=== PATIENT | male | born 1990 | race Hispanic/Latino ===

== ENCOUNTER 2016-07-05 21:18 | Emergency (ER) | payer OTHER ==
[2016-07-05 22:28] LABS: Basophils % (Auto) 0.5 % (0.0-1.8); Hematocrit 39.7 % (35.5-45.6); Hemoglobin 13.7 gm/dl (11.8-15.2); Mean Corpuscular HGB Conc 35 % (32-34); Mean Corpuscular Hemoglobin 32 pg (28-32); Mean Corpuscular Volume 93 fl (84-94); Platelet Count 191 K/mm3 (140-440); Red Blood Count 4.26 M/mm3 (3.65-5.03); Red Cell Distribution Width 12.1 % (13.2-15.2); White Blood Count 11.2 K/mm3 (4.5-11.0)
[2016-07-05 22:42] LABS: Anion Gap 16 mmol/L; Blood Urea Nitrogen 15 mg/dL (9-20); Carbon Dioxide 26 mmol/L (22-30); Chloride 104.3 mmol/L (98-107); Glucose 84 mg/dL (75-100); Potassium 3.9 mmol/L (3.6-5.0); Sodium 142 mmol/L (137-145)
[2016-07-05 23:01] LABS: Urine Drugs of Abuse Note Disclamer
[2016-07-05 23:17] LABS: Bilirubin,Urine NEG (Negative); Blood,Urine NEG (Negative); Ketones,Urine NEG (Negative); Leukocyte Esterase,Urine NEG (Negative); Mucus,Urine 3+ /HPF; Nitrite,Urine NEG (Negative); Protein,Urine <15 mg/dL mg/dL (Negative); WBC,Urine < 1.0 /HPF (0.0-6.0)
--- NOTE | 2016-07-06 03:52 | Emergency Department Report ---
ED General Adult HPI - General Chief complaint: Psych Stated complaint: CHECK UP Time Seen by Provider: 07/06/16 03:39 Source: patient, EMS (ems notes not available at time of chart dictation), RN notes reviewed Mode of arrival: Ambulatory Limitations: No Limitations - History of Present Illness Initial comments: This is a 26-year-old male. He is previously unknown to me. Brought to the hospital by EMS. Patient indicates that he is homeless, and requests a place to stay. He is not homicidal. He is not suicidal. He also complains of headache. The headache is throbbing. It is chronic. It is present for years. Has no exacerbating or relieving factors. Also complains of nonspecific tingling on his fingertips on his toes. This has also been present for years. No exacerbating or relieving factors. -: Gradual, year(s) Location: face Radiation: non-radiation Severity scale (0 -10): 3 Consistency: intermittent Improves with: none Worsens with: none Associated Symptoms: headaches. denies: confusion, chest pain, cough, diaphoresis, fever/chills, loss of appetite, malaise, nausea/vomiting, rash, seizure, shortness of breath, syncope, weakness - Related Data Home Medications Medication Instructions Recorded Confirmed Last Taken No Known Home Medications [No 07/06/16 07/06/16 Unknown Reported Home Medications] Allergies Allergy/AdvReac Type Severity Reaction Status Date / Time No Known Allergies Allergy Verified 07/05/16 21:52 ED Review of Systems ROS: Stated complaint: CHECK UP Other details as noted in HPI Constitutional: denies: fever Eyes: denies: vision change ENT: denies: epistaxis Respiratory: denies: cough Cardiovascular: denies: chest pain Gastrointestinal: denies: abdominal pain Genitourinary: as per HPI Musculoskeletal: as per HPI Skin: as per HPI Neurological: headache Psychiatric: denies: homicidal thoughts, suicidal thoughts ED Past Medical Hx - Past Medical History Previous Medical History?: No - Surgical History Past Surgical History?: No - Social History Smoking Status: Current Every Day Smoker Substance Use Type: Alcohol - Medications Home Medications: Home Medications Medication Instructions Recorded Confirmed Last Taken Type No Known Home Medications [No 07/06/16 07/06/16 Unknown History Reported Home Medications] ED Physical Exam - General Limitations: No Limitations General appearance: alert, in no apparent distress - Head Head exam: Present: atraumatic, normocephalic - Eye Eye exam: Present: normal appearance, EOMI. Absent: nystagmus - ENT ENT exam: Present: normal exam, normal orophraynx, mucous membranes moist, normal external ear exam - Neck Neck exam: Present: normal inspection, full ROM. Absent: tenderness, meningismus - Respiratory Respiratory exam: Present: normal lung sounds bilaterally. Absent: respiratory distress, wheezes, rales, rhonchi, stridor, chest wall tenderness - Cardiovascular Cardiovascular Exam: Present: regular rate, normal rhythm, normal heart sounds. Absent: bradycardia, tachycardia, irregular rhythm, systolic murmur, diastolic murmur, rubs, gallop - GI/Abdominal GI/Abdominal exam: Present: soft, normal bowel sounds. Absent: distended, tenderness, guarding, rebound, rigid, pulsatile mass - Rectal Rectal exam: Present: deferred - Extremities Exam Extremities exam: Present: normal inspection, full ROM, normal capillary refill. Absent: tenderness, pedal edema, joint swelling, calf tenderness - Back Exam Back exam: Present: normal inspection, full ROM. Absent: tenderness, CVA tenderness (R), CVA tenderness (L), muscle spasm, paraspinal tenderness, vertebral tenderness - Neurological Exam Neurological exam: Present: alert, oriented X3, normal gait, other (Extraocular movements intact. Tongue midline. No facial droop. Facial sensation intact to light touch in the V1, V2, V3 distribution bilaterally. 5 and 5 strength in 4 extremities.. Sensation is intact to light touch in 4 extremities.). Absent : motor sensory deficit - Psychiatric Psychiatric exam: Present: flat affect. Absent: homicidal ideation, suicidal ideation - Skin Skin exam: Present: warm, dry, intact, normal color. Absent: rash ED Course Vital Signs 07/05/16 07/06/16 07/06/16 21:52 01:20 02:21 Temperature 98.0 F 97.9 F Pulse Rate 75 68 Respiratory 18 16 12 Rate Blood Pressure 134/85 Blood Pressure 115/77 [Left] O2 Sat by Pulse 97 97 100 Oximetry - Reevaluation(s) Reevaluation #1: 07/06/16 04:08 Differential diagnosis: Homelessness, migraine headache, tension headache, cluster headache general medical evaluation Assessment and plan: 26-year-old male with years of headache. He has a GCS of 15, with an NIH score of 0. Walks with a steady gait, is clinically sober. Has no indication for 1013. Laboratory studies are unremarkable. Friendship improved after ibuprofen. Patient will be discharged, and a case management consult has been placed to assist him with his undomiciled social situation. , ED Medical Decision Making - Lab Data Result diagrams: 07/05/16 22:13 07/05/16 22:13 Vital Signs 07/05/16 07/06/16 07/06/16 21:52 01:20 02:21 Temperature 98.0 F 97.9 F Pulse Rate 75 68 Respiratory 18 16 12 Rate Blood Pressure 134/85 Blood Pressure 115/77 [Left] O2 Sat by Pulse 97 97 100 Oximetry Lab Results 07/05/16 07/05/16 07/05/16 Range/Units 22:13 22:13 22:13 WBC 11.2 H (4.5-11.0) K/mm3 RBC 4.26 (3.65-5.03) M/mm3 Hgb 13.7 (11.8-15.2) gm/dl Hct 39.7 (35.5-45.6) % MCV 93 (84-94) fl MCH 32 (28-32) pg MCHC 35 H (32-34) % RDW 12.1 L (13.2-15.2) % Plt Count 191 (140-440) K/mm3 Lymph % (Auto) 36.8 H (13.4-35.0) % [facility] % (Auto) 6.4 (0.0-7.3) % Eos % (Auto) 3.0 (0.0-4.3) % Baso % (Auto) 0.5 (0.0-1.8) % Lymph # 4.1 (1.2-5.4) K/mm3 [facility] # 0.7 (0.0-0.8) K/mm3 Eos # 0.3 (0.0-0.4) K/mm3 Baso # 0.1 (0.0-0.1) K/mm3 Seg Neutrophils % 53.3 (40.0-70.0) % Seg Neutrophils # 6.0 (1.8-7.7) K/mm3 Sodium 142 (137-145) mmol/L Potassium 3.9 (3.6-5.0) mmol/L Chloride 104.3 (98-107) mmol/L Carbon Dioxide 26 (22-30) mmol/L Anion Gap 16 mmol/L BUN 15 (9-20) mg/dL Creatinine 0.6 L (0.8-1.5) mg/dL Estimated GFR > 60 ml/min BUN/Creatinine Ratio 25.00 % Glucose 84 (75-100) mg/dL Calcium 9.0 (8.4-10.2) mg/dL Urine Color (Yellow) Urine Turbidity (Clear) Urine pH (5.0-7.0) Ur Specific [place] (1.003-1.030) Urine Protein (Negative) mg/dL Urine Glucose (UA) (Negative) mg/dL Urine Ketones (Negative) mg/dL Urine Blood (Negative) Urine Nitrite (Negative) Urine Bilirubin (Negative) Urine Urobilinogen (<2.0) mg/dL Ur Leukocyte Esterase (Negative) Urine WBC (Auto) (0.0-6.0) /HPF Urine RBC (Auto) (0.0-6.0) /HPF U Epithel Cells (Auto) (0-13.0) /HPF Urine Mucus /HPF Urine Opiates Screen Urine Methadone Screen Ur Barbiturates Screen Ur Phencyclidine Scrn Ur Amphetamines Screen U Benzodiazepines Scrn Urine Cocaine Screen U Marijuana (THC) Screen Drugs of Abuse Note Plasma/Serum Alcohol < 0.01 (0-0.07) gm% 07/05/16 07/05/16 Range/Units 22:44 22:44 WBC (4.5-11.0) K/mm3 RBC (3.65-5.03) M/mm3 Hgb (11.8-15.2) gm/dl Hct (35.5-45.6) % MCV (84-94) fl MCH (28-32) pg MCHC (32-34) % RDW (13.2-15.2) % Plt Count (140-440) K/mm3 Lymph % (Auto) (13.4-35.0) % [facility] % (Auto) (0.0-7.3) % Eos % (Auto) (0.0-4.3) % Baso % (Auto) (0.0-1.8) % Lymph # (1.2-5.4) K/mm3 [facility] # (0.0-0.8) K/mm3 Eos # (0.0-0.4) K/mm3 Baso # (0.0-0.1) K/mm3 Seg Neutrophils % (40.0-70.0) % Seg Neutrophils # (1.8-7.7) K/mm3 Sodium (137-145) mmol/L Potassium (3.6-5.0) mmol/L Chloride (98-107) mmol/L Carbon Dioxide (22-30) mmol/L Anion Gap mmol/L BUN (9-20) mg/dL Creatinine (0.8-1.5) mg/dL Estimated GFR ml/min BUN/Creatinine Ratio % Glucose (75-100) mg/dL Calcium (8.4-10.2) mg/dL Urine Color Yellow (Yellow) Urine Turbidity Clear (Clear) Urine pH 6.0 (5.0-7.0) Ur Specific [place] 1.025 (1.003-1.030) Urine Protein <15 mg/dl (Negative) mg/dL Urine Glucose (UA) Neg (Negative) mg/dL Urine Ketones Neg (Negative) mg/dL Urine Blood Neg (Negative) Urine Nitrite Neg (Negative) Urine Bilirubin Neg (Negative) Urine Urobilinogen 2.0 (<2.0) mg/dL Ur Leukocyte Esterase Neg (Negative) Urine WBC (Auto) < 1.0 (0.0-6.0) /HPF Urine RBC (Auto) 4.0 (0.0-6.0) /HPF U Epithel Cells (Auto) < 1.0 (0-13.0) /HPF Urine Mucus 3+ /HPF Urine Opiates Screen Presumptive negative Urine Methadone Screen Presumptive negative Ur Barbiturates Screen Presumptive negative Ur Phencyclidine Scrn Presumptive negative Ur Amphetamines Screen Presumptive negative U Benzodiazepines Scrn Presumptive negative Urine Cocaine Screen Presumptive negative U Marijuana (THC) Screen Presumptive negative Drugs of Abuse Note Disclamer Plasma/Serum Alcohol (0-0.07) gm% Critical care attestation.: If time is entered above; I have spent that time in minutes in the direct care of this critically ill patient, excluding procedure time. ED Disposition Clinical Impression: Headache, Homelessness Disposition: DISCHARGED TO HOME OR SELFCARE Is pt being admited?: No Does the pt Need Aspirin: No Condition: Stable Additional Instructions: While up with a primary care doctor within the next month. Return to the ER right away with new, worsening or different symptoms. Follow up with the recommendations for outpatient shelters/availability which was given to you by the shoe parts caser. Referrals: PRIMARY MD RAGHU [Primary Care Provider] - 3-5 Days AILEEN GARCIA MD [Staff Physician] - 3-5 Days [facility] [Provider Group] - 3-5 Days
[2016-07-06] MEDS ORDERED: MOTRIN PO ONE (03:53)
[2016-07-06 05:08] VITALS: BP 131/75
== END 2016-07-06 05:10 | disposition home or self-care (01) ==
LOC: ED 21:18
DX: R51 Headache (principal); Z59.0 Homelessness; F17.200 Nicotine dependence, unspecified, uncomplicated
CPT/HCPCS: 36415; 80048; 80307; 81001; 85025; 99284; G0480; 80320